=== PATIENT | female | born 1950 | race Caucasian/White ===

== ENCOUNTER 2017-10-07 18:28 | Emergency (ER) | payer OTHER ==
[~2017-10-07] VITALS: Ht 175.3 cm; Wt 100.0 kg
[2017-10-07] MEDS ORDERED: TRAMADOL HCL50 MG PO (19:49)
[2017-10-07] MEDS ORDERED: FLEXERIL5 MG PO (19:49)
[2017-10-07 20:52] VITALS: BP 163/88
== END 2017-10-07 20:52 | disposition home or self-care (01) ==
LOC: EME 18:28
DX: S16.1XXA Strain of muscle, fascia and tendon at neck level, initial encounter (principal); V49.50XA Passenger injured in collision with unspecified motor vehicles in traffic accident, initial encounter; Y92.410 Unspecified street and highway as the place of occurrence of the external cause
CPT/HCPCS: 99281; 99284